=== PATIENT | female | born 1970 | race Hispanic/Latino ===

== ENCOUNTER 2020-11-07 19:06 | Emergency (ER) | payer MEDICAID, OTHER ==
[~2020-11-07] VITALS: Ht 152.4 cm; Wt 94.8 kg
[2020-11-07 19:08] VITALS: BP 150/65
[2020-11-07] MEDS ORDERED: IBUPROFEN 600 MG TABLET PO ONE (20:00)
[2020-11-07] MEDS ORDERED: LIDOCAINE HCL 2% VISCOUS 15 ML UDCUP PO ONE (20:00)
[2020-11-07] MEDS ORDERED: ACETAMINOPHEN 500 MG TABLET PO ONE (20:00)
[2020-11-07] MEDS ORDERED: MAG/ALUM/SIMETH 30 ML UDCUP PO ONE (20:00)
[2020-11-07] MEDS ORDERED: ALBU8.5H8 IH (21:15)
[2020-11-07] MEDS ORDERED: BENZ-17 PO (21:15)
[2020-11-07 21:31] VITALS: BP 129/74
== END 2020-11-07 21:44 | disposition home or self-care (01) ==
LOC: EDH 19:06
DX: U07.1 COVID-19 (principal); J10.1 Influenza due to other identified influenza virus with other respiratory manifestations
CPT/HCPCS: 87635; 87804 ×2; 99284; C9803

== ENCOUNTER 2021-11-08 14:36 | Emergency (ER) | payer BC, OTHER ==
[~2021-11-08] VITALS: Ht 154.9 cm; Wt 96.2 kg
[~2021-11-08 14:36] MED LIST: ALBU8.5H8 IH; BENZ-17 PO
[2021-11-08] MEDS ORDERED: PREDNISONE 20 MG TABLET PO ONE (16:00)
[2021-11-08] MEDS ORDERED: KETOROLAC 30MG VIAL (30MG/ML) IM ONE (16:00)
[2021-11-08] MEDS ORDERED: CYCL5TAB PO (18:11)
[2021-11-08] MEDS ORDERED: PRED20TA3 PO (18:11)
[2021-11-08] MEDS ORDERED: NAPR500T6 PO (18:11)
[2021-11-08 18:29] VITALS: BP 157/89
== END 2021-11-08 18:42 | disposition home or self-care (01) ==
LOC: EDH 14:36
DX: M54.50 Low back pain, unspecified (principal); Z79.899 Other long term (current) drug therapy
CPT/HCPCS: 99284; 72131; 96372; J1885

== ENCOUNTER 2023-09-02 19:23 | Emergency (ER) | payer BC, OTHER ==
[~2023-09-02] VITALS: Ht 152.4 cm; Wt 97.5 kg
[~2023-09-02 19:23] MED LIST changes: +CYCL5TAB PO; +NAPR500T6 PO; +PRED20TA3 PO
[2023-09-02 20:29] LABS: BASOPHILS # (AUTO) 0.01 K/uL (0.00-0.20); BASOPHILS % (AUTO) 0.1 % (0.0-5.0); HEMATOCRIT 42.7 % (36-48); IMMATURE GRANULOCYTE ABSOLUTE 0.04 K/uL (0-1); LYMPHOCYTES # (AUTO) 0.8 K/uL (1.0-4.8); LYMPHOCYTES % (AUTO) 9.6 % (21.0-51.0); MEAN CORPUSCULAR HEMOGLOBIN 28.6 pg (27.0-33.0); MEAN CORPUSCULAR HGB CONC 33.3 g/dL (32.0-36.0); MEAN CORPUSCULAR VOLUME 85.9 fL (79-99); MONOCYTES # (AUTO) 0.6 K/uL (0.1-1.0); MONOCYTES % (AUTO) 7.1 % (3.0-13.0); NEUTROPHILS # (AUTO) 7.1 K/uL (1.8-7.7); NEUTROPHILS % (AUTO) 82.7 % (40.0-77.0); PLATELET COUNT (AUTO) 266 K/uL (130-400); RED BLOOD CELL COUNT(AUTO) 4.97 MIL/uL (4.00-5.50); RED CELL DISTRIBUTION WIDTH 13.1 % (11.0-15.5); WHITE BLOOD COUNT (AUTO) 8.6 K/uL (4.8-10.8)
[2023-09-02 20:43] LABS: POTASSIUM 3.7 mmol/L (3.5-5.1)
[2023-09-02 20:48] LABS: ALBUMIN 3.3 g/dL (3.5-5.0); BILIRUBIN,TOTAL 0.6 mg/dL (0.2-1.0); TOTAL PROTEIN, SERUM 8.2 g/dL (6.0-8.3)
[2023-09-02] MEDS: LACTATED RINGERS 1000ML 1,000 ML IV ONE (21:58)
[2023-09-02] MEDS: ACETAMINOPHEN 500 MG TABLET PO ONE (22:06)
[2023-09-02 22:15] LABS: RAPID GROUP A STREP negative (NEGATIVE); SARS-CoV-2, RNA, NAAT NEGATIVE SARS CoV-2 (NEGATIVE)
[2023-09-02 22:35] LABS: INFLUENZA TYPE A NEGATIVE FOR TYPE A (NEG); INFLUENZA TYPE B NEGATIVE FOR TYPE B (NEG)
[2023-09-02 22:52] VITALS: TEMP 100.2
[2023-09-02 23:35] VITALS: BP 121/51; PULSE 84; RESP 20; O2SAT 98
[2023-09-02 23:52] LABS: APPEARANCE,URINE CLEAR (CLEAR); BILIRUBIN,URINE NEGATIVE (NEGATIVE); COLOR,URINE YELLOW (YELLOW); GLUCOSE, URINE (UA) NEGATIVE (NEGATIVE); KETONES,URINE NEGATIVE (NEGATIVE); LEUKOCYTE ESTERASE ,URINE NEGATIVE Leu/uL (NEGATIVE); NITRATE,URINE NEGATIVE (NEGATIVE); OCCULT BLOOD,URINE LARGE (NEGATIVE); PH,URINE 6.5 (5.0-8.0); PROTEIN,URINE 70 mg/dL (NEGATIVE)
[2023-09-03] MEDS ORDERED: FLUT16H NASAL (00:02)
[2023-09-03] MEDS ORDERED: AMOX1TAB16 PO (00:02)
[2023-09-03] MEDS ORDERED: LORA10TA7 PO (00:02)
[2023-09-03 00:21] LABS: BACTERIA,URINE FEW /HPF (None Seen); MUCUS,URINE RARE LPF (None Seen); SQUAMOUS EPITHELIAL CELL,UR FEW /HPF (0-2)
== END 2023-09-03 00:23 | disposition home or self-care (01) ==
LOC: EDH 19:23
DX: J32.9 Chronic sinusitis, unspecified (principal); Z20.822 Contact with and (suspected) exposure to COVID-19
CPT/HCPCS: 99284; 71045; 87635; 80053; 85025; 87880; 87804 ×2; 81001 ×2; 36415; J7120